=== PATIENT | female | born 1995 | race African-American/Black ===

== ENCOUNTER 2017-06-04 10:34 | Emergency (ER) | payer SELFPAY ==
[~2017-06-04] VITALS: Ht 149.9 cm; Wt 77.1 kg
[2017-06-04 10:45] VITALS: BP 119/80
== END 2017-06-04 17:10 | disposition left against medical advice (07) ==
LOC: ER 10:34
DX: J02.9 Acute pharyngitis, unspecified (principal); Z53.21 Procedure and treatment not carried out due to patient leaving prior to being seen by health care provider

== ENCOUNTER 2017-10-13 18:14 | Emergency (ER) | payer SELFPAY ==
[~2017-10-13] VITALS: Ht 149.9 cm; Wt 56.7 kg
[2017-10-13 18:33] VITALS: BP 131/80
[2017-10-13 19:34] LABS: Basophils # (auto) 0.1 uL; Lymphocytes # (auto) 2.7 uL; White Blood Cell 8.1 10^3/uL (4.4-10.8)
[2017-10-13 19:36] LABS: Basophils % (auto) 1.1 % (0.0-2.0); Eosinophils # (auto) 0.2 uL; Hemoglobin 10.5 g/dL (12.2-16.2); Lymphocytes % (auto) 33.7 % (10.0-50.0); Mean Corpuscular Hemoglobin 24.8 pg (28.0-32.0); Mean Corpuscular Volume 75.3 fL (80.0-100.0); Monocytes # (auto) 0.6 uL; Monocytes % (auto) 7.8 % (0.0-12.0); Neutrophils # (auto) 4.4 uL; Neutrophils % (auto) 54.4 % (37.0-80.0); Platelet Count (auto) 342 10^3/uL (140-450); Red Blood Cells 4.25 10^6/uL (4.0-5.20); Red Cell Distribution Width 14.5 % (11.8-14.3)
[2017-10-13 19:56] LABS: Alanine Aminotransferase 14 U/L (13-56); Albumin 3.4 g/dL (3.4-5.0); Anion Gap 7 (5-15); Aspartate Aminotransferase 12 U/L (15-37); BUN/Creatinine Ratio 10.9; Blood Urea Nitrogen 7 mg/dL (7-18); Calcium 8.6 mg/dL (8.5-10.1); Carbon Dioxide 26 mmol/L (21-32); Chloride 105 mmol/L (98-107); GFR African American 152 mL/min; GFR Non-African American 126 mL/min; Glucose 86 mg/dL (74-106); Magnesium 2.1 mg/dL (1.6-2.6); Potassium 3.9 mmol/L (3.5-5.1); Sodium 138 mmol/L (136-145)
[2017-10-13 20:01] LABS: Alkaline Phosphatase 94 U/L (45-117); Bilirubin, Total 0.5 mg/dL (0.2-1.0); Total Protein 8.2 g/dL (6.4-8.2)
[2017-10-13 20:55] LABS: Urine Bacteria NONE SEEN /hpf (None Seen); Urine Blood Negative /uL (Negative); Urine Mucus FEW (None Seen); Urine Specific Gravity 1.014 (1.001-1.035); Urine WBC 5 /hpf (0 - 5)
== END 2017-10-14 02:13 | disposition left against medical advice (07) ==
LOC: ER 18:14
DX: R07.9 Chest pain, unspecified (principal); R06.02 Shortness of breath; Z53.21 Procedure and treatment not carried out due to patient leaving prior to being seen by health care provider
CPT/HCPCS: 36415; 80053; 81001; 81025; 83735; 84484; 85025; 93005